=== PATIENT | male | born 1945 | race Caucasian/White ===

== ENCOUNTER → 2018-07-28 | Outpatient (CLI) | payer OTHER ==
[~2018-07-28] VITALS: Ht 177.8 cm; Wt 93.9 kg
[~2018-07-28] MED LIST: ASPIRIN EC325 MG PO; COZAAR 25 MG TA25 M1 PO; GABAPENTIN 100100 MG PO; GLIPIZIDE 10 MG10 MG PO; IMDUR 30 MG TAB30 M1 PO; LANTUS100 UNIT/M SUBQ; METFORMIN HCL500 MG PO; NOVOLOG100 UNIT/1 SUBQ; PAXIL10 MG PO; PRAVACHOL40 MG PO; PROTONIX40 M1 PO; SYNTHROID25 MC1 PO; TOPROL XL25 MG PO; TRAMADOL 50 MG50 MG PO; TUMS PO; UNICOMPLEX M TA1 TA1 PO; VENLAFAXINE H37.5 M2 PO
[2018-07-28 08:39] VITALS: BP 127/69
[2018-07-28 09:02] LABS: HEMATOCRIT 34.3 % (42.0-52.0); HEMOGLOBIN 11.7 gm/dL (14.0-18.0); MCH 29.4 pg (26.0-34.0); MCHC 34.2 g/dL (28.0-37.0); RBC 3.99 mil/uL (4.50-6.00); WBC 5.8 thou/uL (4.0-11.0)
[2018-07-28 09:11] LABS: CALCIUM 9.5 mg/dL (8.5-10.1); CREATININE 0.8 mg/dL (0.7-1.3); POTASSIUM 3.9 mmol/L (3.5-5.1)
[2018-07-28 09:14] LABS: PROTIME 9.9 Seconds (9.3-11.4)
--- NOTE | 2018-07-28 15:15 | CATHLAB ---
[facility] [place] [address] INVASIVE PROCEDURE REPORT Name: SHAYANJACK ISRA MEMBRENO [id number] Admission: 07/28/18 Attend Phys: Ramy Lacey MD Discharge: Date of : 45 Date of Service: 07/28/18 1425 Report #: [id number] THIS REPORT FOR: //name// APPROVED REPORT Study performed: 07/28/2018 08:41:27 Patient Details Patient Status: Out-Patient Room #: The patient is a 73 year-old male Event Personnel Ramy Lacey Fixer Boarding Room, Chance Anderson RN, Emerald Almaraz RTR, VENECIA Church, Jerson Gonzalez Monitor Procedures Performed Left Heart Cath w/or w/o Coronaries [id number] [facility] Indication Abnormal ECG, Dyspnea, Unstable angina , Chest pain Risk Factors Hypercholesterolemia, Hypertension, Diabetes Procedure Narrative The Right Groin^ was infiltrated with 1% Lidocaine subcutaneous anesthesia. A PINNACLE 5FR Sheath #[id number] sheath was inserted into the RFA^. Coronary angiography was performed using coronary diagnostic catheters. The right coronary system was accessed and visualized with a JR4 catheter. The left coronary system was accessed and visualized with a 4FR JL 5.0 #[id number] catheter. The left ventricle was accessed and visualized with a PIGTAIL catheter. Left ventricular/Aortic Valve gradient assessed via catheter pullback. Left ventriculogram was performed in 30 degree projection. Closure device was deployed with a 5 Fr MYNXGRIP 5F #[id number]. There was no hematoma. Intraoperative Conscious Sedation Sedation start time: 9.37 Case end Time: 10.13 Fentanyl 50 mcg Versed 1 mg [facility] [place] [address] INVASIVE PROCEDURE REPORT Name: JACK DOWNEY JR Room #: REG [facility]#: [id number] Admission: 07/28/18 Attend Phys: Ramy Lacey MD Discharge: Date of : 45 Date of Service: 07/28/18 1425 Report #: [id number] Fluoro Time: 4.37 minutes Dose: DAP 7891 cGycm2 984 mGy Coronary Angiography The patient's coronary anatomy is right dominant. Diagnostic Cath Left Main This is a patent vessel, with no flow-limiting lesions. LAD There is a severe, ostial stenosis, 90%. Within the first half of the mid segment, there is a borderline stenosis, 60%. Diagonal 1 This is a moderate size caliber vessel, with mild disease proximally. Circumflex There is a severe occlusion in the mid segment, 80%. OM1 This is a patent vessel, with no flow-limiting lesions. OM2 There is an ostial stenosis, 60%. Right Coronary There is a total occlusion in the midsegment. The distal branches are filled via collateral circulation from the left coronary artery. Left Ventriculography The left ventricle is normal in size with decreased contractility. The left ventricular ejection fraction is estimated to be 40-45%. There is hypokinesis of the inferior segment. Hemodynamics The aortic pressure is 142/70 mmHg with a mean of 100 mmHg. The left ventricular pressure is 151/11 mmHg with a mean of mmHg. The left ventricular end diastolic pressure is 28 mmHg. There was no gradient across the aortic valve upon pullback. Pullback from the left ventricle to the aorta revealed no gradient across the aortic valve. Conclusion 1. Severe multivessel disease. 2. Mild to moderate segmental LV dysfunction. 3. Recommend CV surgical consultation. <ELECTRONICALLY SIGNED> By: aRmy Lacey MD 07/28/18 1425 1425 1425 Ramy Lacey MD /INF
--- NOTE | 2018-07-28 22:15 | EKG ---
[address] [address] ELECTROCARDIOGRAM REPORT Name: JACK DOWNEY [facility] [id number] Admission: 07/28/18 Attend Phys: Ramy Lacey MD Discharge: Date of : 45 Report #: [id number] THIS REPORT FOR: //name// [facility] Test Date: 2018-07-28 Test Time: 09:01:50 Pat Name: JACK DOWNEY Department: Room: Gender: Irrigation Manager: Lynette PATEL : 1945 Requested By: Ramy Lacey Order Number: [id number] MD: Benito Salcido Measurements Intervals [place] Rate: 83 P: 50 [place]: 152 QRS: -29 QRSD: 107 T: 32 QT: 386 QTc: 454 Interpretive Statements Sinus rhythm Atrial premature complex Inferior infarct, old No previous ECG available for comparison Electronically Signed On 07-28-2018 22:15:37 SHROUDMAN by Benito Salcido [email or web address] <ELECTRONICALLY SIGNED> By: Benito Salcido MD 07/28/18 2215 09 0 Benito Salcido MD /LUDIN
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
== END | disposition home or self-care (01) ==
LOC: CATH 08:05
PROVIDERS: Internal Medicine Cardiovascular Disease
DX: I25.110 Atherosclerotic heart disease of native coronary artery with unstable angina pectoris (principal); R07.9 Chest pain, unspecified; F41.9 Anxiety disorder, unspecified; E11.9 Type 2 diabetes mellitus without complications; E78.5 Hyperlipidemia, unspecified; G47.30 Sleep apnea, unspecified; M19.90 Unspecified osteoarthritis, unspecified site; K21.9 Gastro-esophageal reflux disease without esophagitis; I10 Essential (primary) hypertension; Z82.49 Family history of ischemic heart disease and other diseases of the circulatory system

== ENCOUNTER → 2018-08-04 | Outpatient (CLI) | payer OTHER ==
[~2018-08-04] MED LIST changes: +ALEVE220 MG PO; +ALLER-TEC D 5-1 EACH PO; +ATORVASTATIN CA40 MG PO; +CALCIUM 600 +1 EA12 PO; +FIBERCON625 M1 PO; +FLOMAX0.4 MG PO; +GLUCOPHAGE1000 MG PO; +KRILL OIL500 MG PO; +ONE-A-DAY ESSE1 EACH PO; +PAXIL 20 MG TAB20 MG PO; +STOOL SOFTENER1 EAC2 PO; +TOPROL XL50 MG PO; +TRULICITY1.5 MG/0.5 SUBQ; +TUSSIN DM LIQU118 ML PO; +VOLTAREN GEL 1100 G1 TOP
--- NOTE | 2018-08-04 15:03 | 2DMMODE ---
[facility] [place] [address] 2 D/M-MODE ECHOCARDIOGRAM Name: JACK DOWNEY JR Room #: REG [facility]#: [id number] Admission: 08/04/18 Attend Phys: Ramy Lacey MD Discharge: Date of : 45 Date of Service: 08/04/18 1502 Report #: [id number] THIS REPORT FOR: //name// APPROVED REPORT Study performed: 08/04/2018 14:05:11 EXAM: Comprehensive 2D, Doppler, and color-flow Echocardiogram Patient Location: Out-Patient Status: routine BSA: 2.13 HR: 74 bpm BP: 120/66 mmHg Rhythm: NSR Other Information Study Quality: Good Indications CAD, Pre-Op CABG. Hx: HTN, HLP, DM 2D Dimensions RVDd: 40.61 mm IVSd: 11.87 (7-11mm) LVOT Diam: 22.67 (18-24mm) LVDd: 53.30 mm PWd: 13.03 (7-11mm) Ascending Ao: 40.83 (22-36mm) LVDs: 36.66 (25-40mm) Aortic Root: 37.05 mm Volumes Left Atrial Volume (Systole) Single Plane 4CH: 72.14 mL Single Plane 2CH: 88.28 mL LA ESV Index: 41.00 mL/m2 Aortic Valve AoV Peak Derrick.: 2.26 m/s AO Peak Gr.: 20.39 mmHg LVOT Max P.95 mmHg AO Mean Gr.: 9.43 mmHg AO V2 Mean: 1.45 m/s LVOT Max V: 0.99 m/s AO V2 VTI: 37.01 cm RUPA Vmax: 1.78 cm2 Mitral Valve E/A Ratio: 0.6 MV Decel. Time: 192.44 ms [facility] [place] [address] 2 D/M-MODE ECHOCARDIOGRAM Name: JACK DOWNEY Room #: REG [facility].#: [id number] Admission: 08/04/18 Attend Phys: Ramy Lacey MD Discharge: Date of : 45 Date of Service: 08/04/18 1502 Report #: [id number] MV E Max Derrick.: 0.67 m/s MV A Derrick.: 1.21 m/s MV PHT: 55.81 ms IVRT: 93.43 ms Pulmonary Valve PV Peak Derrick.: 1.09 m/s PV Peak Gr.: 4.77 mmHg Pulmonary Vein P Vein S: 0.59 m/s P Vein A: 0.28 m/s P Vein D: 0.39 m/s P Vein A Dur.: 114.2 msec P Vein S/D Ratio: 1.51 Tricuspid Valve TR Peak Derrick.: 2.56 m/s RAP Estimate: 5.00 mmHg TR Peak Gr.: 26.22 mmHg PA Pressure: 31.00 mmHg Left Ventricle The left ventricle is normal size. Hypokinesis of the inferior wall. Mild concentric left ventricular hypertrophy. Left ventricular systolic function is mildly decreased. LVEF is 45%. Mild diastolic dysfunction is present (impaired relaxation pattern). Right Ventricle The right ventricle is normal size. The right ventricular systolic function is normal. Atria Left atrium is mild to moderately dilated. Right atrium is mildly dilated. Aortic Valve The Aortic valve is sclerotic. Mild aortic regurgitation. Mitral Valve Mitral valve leaflets are mildly thickened. Mild mitral annular calcification. Mild mitral regurgitation. No evidence of mitral valve stenosis. Tricuspid Valve The tricuspid valve is normal in structure. Trace tricuspid regurgitation. Estimated PAP is 30-35mmHg. Pulmonic Valve [address] [address] 2 D/M-MODE ECHOCARDIOGRAM Name: DOWNEYJACK ISRA Room #: REG [facility] [id number] Admission: 08/04/18 Attend Phys: Ramy Lacey MD Discharge: Date of : 45 Date of Service: 08/04/18 1502 Report #: [id number] The pulmonary valve is normal in structure. There is no pulmonic valvular regurgitation. Great Vessels The aortic root is normal in size. Ascending aorta is dilated at 4.1cm. IVC is normal in size and collapses >50% with inspiration. Pericardium There is no pericardial effusion. <Conclusion> The left ventricle is normal size. Mild concentric left ventricular hypertrophy. LVEF is 45%. Hypokinesis of the inferior wall. Mild diastolic dysfunction is present (impaired relaxation pattern). The right ventricle is normal size. Left atrium is mild to moderately dilated. Right atrium is mildly dilated. The Aortic valve is sclerotic. Mild aortic regurgitation. Mild mitral regurgitation. Trace tricuspid regurgitation. Estimated PAP is 30-35mmHg. <ELECTRONICALLY SIGNED> By: Ramy Lacey MD 08/04/18 1502 150 150 Ramy Lacey MD /INF
== END ==
LOC: CV 08:46
DX: Z01.818 Encounter for other preprocedural examination (principal); I08.0 Rheumatic disorders of both mitral and aortic valves; I10 Essential (primary) hypertension; E78.5 Hyperlipidemia, unspecified; E11.9 Type 2 diabetes mellitus without complications

== ENCOUNTER 2018-08-11 05:23 | Inpatient (IN) | payer OTHER ==
[2018-08-04 10:56] LABS: URINE BILIRUBIN NEGATIVE (Negative); URINE BLOOD NEGATIVE (Negative); URINE CLARITY CLEAR; URINE COLOR YELLOW; URINE GLUCOSE-RANDOM* 1+ (Negative); URINE KETONES NEGATIVE (Negative); URINE LEUKOCYTES-REFLEX NEGATIVE (Negative); URINE NITRITE-REFLEX NEGATIVE (Negative); URINE PROTEIN (DIPSTICK) NEGATIVE (Negative); URINE SPECIFIC GRAVITY <= 1.005 (1.005-1.035); URINE UROBILINOGEN 0.2 E.U./dl (0.2-1.0)
[2018-08-04 11:00] LABS: ABSOLUTE NEUTROPHILS 3.8 thou/uL (1.4-8.2); BASOPHILS 0.5 % (0.0-2.0); EOSINOPHILS 6.9 % (0.0-3.0); HEMATOCRIT 38.2 % (42.0-52.0); HEMOGLOBIN 12.7 gm/dL (14.0-18.0); LYMPHOCYTES 18.7 % (24.0-44.0); MCHC 33.1 g/dL (28.0-37.0); MCV 87.5 fL (80.0-100.0); MONOCYTES 11.7 % (1.0-8.0); PLATELET COUNT 312 thou/uL (150-400); POLYS 62.2 % (36.0-66.0); RBC 4.36 mil/uL (4.50-6.00); RDW 14.4 % (10.5-14.5); WBC 6.1 thou/uL (4.0-11.0)
[2018-08-04 11:13] LABS: ALBUMIN 3.6 g/dL (3.4-5.0); CALCIUM 9.9 mg/dL (8.5-10.1); CREATININE 0.9 mg/dL (0.7-1.3); POTASSIUM 4.4 mmol/L (3.5-5.1); TOTAL BILIRUBIN 0.2 mg/dL (<0.1-1.0); TOTAL PROTEIN 7.9 g/dL (6.4-8.2)
[2018-08-04 11:15] LABS: APTT 25.4 Seconds (24.5-32.8); PROTIME 9.5 Seconds (9.3-11.4)
[2018-08-04 20:07] LABS: GLYCOHEMOGLOBIN (HGB A1C) 11.5 % (4.8-5.6)
[2018-08-11] VITALS (9 sets, daily range): BP systolic 117–157; BP diastolic 61–84
[~2018-08-11] VITALS: Ht 177.8 cm; Wt 101.2 kg
[2018-08-11 14:15] LABS: HEMATOCRIT 23.6 % (42.0-52.0); MCH 29.5 pg (26.0-34.0); MCV 84.4 fL (80.0-100.0); RBC 2.79 mil/uL (4.50-6.00); RDW 13.8 % (10.5-14.5); WBC 6.7 thou/uL (4.0-11.0)
[2018-08-11 14:17] LABS: HEMOGLOBIN 8.2 gm/dL (14.0-18.0)
[2018-08-11 14:24] LABS: APTT 28.2 Seconds (24.5-32.8); PROTIME 15.8 Seconds (9.3-11.4)
[2018-08-11 14:30] LABS: INR 1.5
[2018-08-11 15:04] LABS: POC BE 6 mmol/L (-2.0 to +3.0); POC CA IONIZED 4.7 mg/dL (4.5-5.3); POC GLUCOSE 153 mg/dL (70-99); POC HCO3 29.5 mmol/L (22.0-26.0); POC HEMOGLOBIN 10.9 g/dL (14.0-18.0); POC SODIUM 139 mmol/L (136-145); POC pCO2 38.5 mmHg (35.0-45.0); POC pH 7.493 (7.360-7.450)
[2018-08-11 15:04] LABS: POC BE 2 mmol/L (-2.0 to +3.0); POC CA IONIZED 4.9 mg/dL (4.5-5.3); POC GLUCOSE 154 mg/dL (70-99); POC HCO3 25.9 mmol/L (22.0-26.0); POC HEMOGLOBIN 8.5 g/dL (14.0-18.0); POC POTASSIUM 3.6 mmol/L (3.5-5.1); POC SODIUM 142 mmol/L (136-145); POC pCO2 39.2 mmHg (35.0-45.0); POC pH 7.428 (7.360-7.450)
[2018-08-11 15:04] LABS: POC BE 7 mmol/L (-2.0 to +3.0); POC CA IONIZED 4.2 mg/dL (4.5-5.3); POC GLUCOSE 129 mg/dL (70-99); POC HEMOGLOBIN 9.2 g/dL (14.0-18.0); POC POTASSIUM 3.7 mmol/L (3.5-5.1); POC SODIUM 140 mmol/L (136-145); POC pCO2 39.9 mmHg (35.0-45.0); POC pH 7.484 (7.360-7.450)
[2018-08-11 15:04] LABS: POC BE 3 mmol/L (-2.0 to +3.0); POC GLUCOSE 153 mg/dL (70-99); POC HCO3 27.4 mmol/L (22.0-26.0); POC HEMOGLOBIN 8.8 g/dL (14.0-18.0); POC SODIUM 141 mmol/L (136-145); POC pCO2 43.9 mmHg (35.0-45.0); POC pH 7.404 (7.360-7.450)
[2018-08-11 15:04] LABS: POC BE 3 mmol/L (-2.0 to +3.0); POC CA IONIZED 4.4 mg/dL (4.5-5.3); POC GLUCOSE 145 mg/dL (70-99); POC HCO3 27.6 mmol/L (22.0-26.0); POC HEMOGLOBIN 8.8 g/dL (14.0-18.0); POC POTASSIUM 3.6 mmol/L (3.5-5.1); POC SODIUM 142 mmol/L (136-145); POC pCO2 40.9 mmHg (35.0-45.0); POC pH 7.438 (7.360-7.450)
[2018-08-11 15:04] LABS: POC BE 5 mmol/L (-2.0 to +3.0); POC CA IONIZED 4.6 mg/dL (4.5-5.3); POC GLUCOSE 129 mg/dL (70-99); POC HEMOGLOBIN 10.2 g/dL (14.0-18.0); POC POTASSIUM 3.5 mmol/L (3.5-5.1); POC SODIUM 140 mmol/L (136-145); POC pCO2 34.6 mmHg (35.0-45.0); POC pH 7.516 (7.360-7.450)
[2018-08-11 15:04] LABS: POC BE 1 mmol/L (-2.0 to +3.0); POC CA IONIZED 4.8 mg/dL (4.5-5.3); POC GLUCOSE 141 mg/dL (70-99); POC HCO3 25.6 mmol/L (22.0-26.0); POC HEMOGLOBIN 9.9 g/dL (14.0-18.0); POC POTASSIUM 3.9 mmol/L (3.5-5.1); POC SODIUM 143 mmol/L (136-145); POC pCO2 41.2 mmHg (35.0-45.0); POC pH 7.401 (7.360-7.450)
[2018-08-11 15:04] LABS: POC BE 4 mmol/L (-2.0 to +3.0); POC CA IONIZED 4.5 mg/dL (4.5-5.3); POC GLUCOSE 136 mg/dL (70-99); POC HCO3 27.6 mmol/L (22.0-26.0); POC HEMOGLOBIN 9.5 g/dL (14.0-18.0); POC SODIUM 142 mmol/L (136-145); POC pCO2 39.2 mmHg (35.0-45.0); POC pH 7.455 (7.360-7.450)
[2018-08-11 15:04] LABS: POC BE 4 mmol/L (-2.0 to +3.0); POC CA IONIZED 4.4 mg/dL (4.5-5.3); POC GLUCOSE 138 mg/dL (70-99); POC HCO3 28.1 mmol/L (22.0-26.0); POC HEMOGLOBIN 9.5 g/dL (14.0-18.0); POC POTASSIUM 2.9 mmol/L (3.5-5.1); POC SODIUM 143 mmol/L (136-145); POC pCO2 39.8 mmHg (35.0-45.0); POC pH 7.457 (7.360-7.450)
[2018-08-11 15:32] LABS: HEMATOCRIT 29.3 % (42.0-52.0); HEMOGLOBIN 10.1 gm/dL (14.0-18.0); MCH 29.5 pg (26.0-34.0); MCHC 34.3 g/dL (28.0-37.0); RBC 3.41 mil/uL (4.50-6.00); RDW 14.2 % (10.5-14.5); WBC 10.2 thou/uL (4.0-11.0)
[2018-08-11 15:39] LABS: CALCIUM 8.6 mg/dL (8.5-10.1); CREATININE 0.8 mg/dL (0.7-1.3); MAGNESIUM 2.3 mg/dL (1.8-2.4); POTASSIUM 4.1 mmol/L (3.5-5.1)
[2018-08-11 15:41] LABS: BE(vivo) -3.7 mmol/L (-2 to +3); HCO3 22.8 mmol/L (22.0-26.0); PCO2 47.5 mmHg (35.0-45.0); PO2 175.9 mmHg (80.0-100.0)
[2018-08-11 15:42] LABS: pH 7.299 (7.360-7.450)
[2018-08-11 15:43] LABS: APTT 23.6 Seconds (24.5-32.8); INR 1.1; PROTIME 11.2 Seconds (9.3-11.4)
[2018-08-11 16:23] LABS: HCO3 21.5 mmol/L (22.0-26.0); PCO2 40.9 mmHg (35.0-45.0); PO2 112.7 mmHg (80.0-100.0); pH 7.339 (7.360-7.450); sO2 97.9 % (92.0-98.0)
[2018-08-11 18:31] LABS: BE(vivo) -4.3 mmol/L (-2 to +3); HCO3 21.9 mmol/L (22.0-26.0); PCO2 44.9 mmHg (35.0-45.0); PO2 107.1 mmHg (80.0-100.0); sO2 97.4 % (92.0-98.0)
[2018-08-11 18:33] LABS: pH 7.307 (7.360-7.450)
--- NOTE | 2018-08-11 19:29 | NUR ---
PT TRANSFERRED TO ICU POST CABG X4 1500. DR. GOOD, BUCK SWAMPER, RT, AND DR. YANEZ PRESENT UPON ARRIVAL. PLACED ON VENT. SEDATED ON PROPOFOL. INSULIN GTT AND DOBUTAMINE GTT INSUING. PLACED ON MONTIOR. R-IJ. R-RADIAL ABI. ARM BOARD IN PLACE. SWAN AT 53. ATRIUM TO -20 SUCTION. 2 MEDS/[address] SEE I/O FOR HOURLY OUTPUT. INITAL LABS DRAWN. BS Q1HR, SEE INSULIN FLOW SHEET FOR TITRATION. TIANA KELLYGGER INITIATED - OFF AT 1630. OG TO LIS. PACER WIRES IN PLACE - OFF. STARTED ON 1/2 NS WITH MAG. AMIO GTT PER ORDERS. CRITICAL RESULTS COMMUNICATED TO DR. YANEZ. CPAP TRIAL DONE. ORDERS TO EXTUBATE. EXTUBATED AT 1850. ON FACESHIELD 40%. PT TOLERATED WELL. PRN FENTANYL GIVEN. UPDATED ON PATIENT STATUS.
[2018-08-11 20:11] LABS: BE(vivo) -3.8 mmol/L (-2 to +3); HCO3 21.8 mmol/L (22.0-26.0); PCO2 41.6 mmHg (35.0-45.0); PO2 86.2 mmHg (80.0-100.0); pH 7.337 (7.360-7.450)
[2018-08-12] VITALS (28 sets, daily range): BP systolic 96–137; BP diastolic 50–96
[2018-08-12 04:28] LABS: HEMATOCRIT 32.2 % (42.0-52.0); HEMOGLOBIN 10.7 gm/dL (14.0-18.0); MCH 28.6 pg (26.0-34.0); MCHC 33.3 g/dL (28.0-37.0); MCV 86.1 fL (80.0-100.0); RBC 3.74 mil/uL (4.50-6.00); RDW 14.4 % (10.5-14.5); WBC 12.1 thou/uL (4.0-11.0)
[2018-08-12 04:29] LABS: CALCIUM 8.6 mg/dL (8.5-10.1); CREATININE 0.7 mg/dL (0.7-1.3); MAGNESIUM 2.4 mg/dL (1.8-2.4); POTASSIUM 4.1 mmol/L (3.5-5.1)
[2018-08-12 04:31] LABS: INR 1.1; PROTIME 11.2 Seconds (9.3-11.4)
--- NOTE | 2018-08-12 07:39 | NUR ---
ASSUMED CARE OF PT AT 1900. PT EXTUBATED BY PRIOR SHIFT RN. PT TOLERATED WELL. RN ABLE TO WEAN O2 NEEDS DOWN. PT CURRENTLY ON A NC AT 2L. PT OFF DOBUTAMINE AND CARDENE. HEMODYNAMICALLY STABLE. PT ALERT AND ORIENTED X4. PT C/O PAIN ON HIS UPPER ABDOMEN/ CHEST R/T HIS CHEST TUBES. EDUCATION ABOUT PAIN MANAGMENT AND WHAT TO ANTICIPATE WAS PROVIDED TO PATIENT. PT ABLE TO TOLERATE GETTING UP OUT OF CHAIR THIS AM. GOOD UO. PT MAKING GREAT PROGRESS TOWARDS GOALS.
--- NOTE | 2018-08-12 08:07 | EKG ---
[place] [address] [facility] [place] [address] ELECTROCARDIOGRAM REPORT Name: JACK DOWNEY Room #: 241-P ADM IN M.R.#: [id number] Admission: 08/11/18 Attend Phys: Breezy Vu MD Discharge: Date of : 45 Report #: [id number] THIS REPORT FOR: //name// [facility] Test Date: 2018-08-11 Test Time: 17:50:38 Pat Name: JACK DOWNEY Department: Room: 241 Gender: M Bobbin Cleaner: Mark PINTO : 1945 Requested By: Breezy Vu Order Number: [id number] MD: Cain Silverman Measurements Intervals [place] Rate: 94 P: 32 [place]: 161 QRS: -38 QRSD: 95 T: 2 QT: 371 QTc: 464 Interpretive Statements Sinus rhythm RSR' in V1 or V2, right VCD Inferior infarct, old Compared to ECG 07/28/2018 09:01:50 No significant change was found Electronically Signed On 08-12-2018 8:07:26 ROD AND TUBE STRAIGHTENER by Cain Silverman [email or web address] <ELECTRONICALLY SIGNED> By: Cain Silverman MD, [facility] 08/12/18806 1750 175 Cain Silverman MD, [facility] /EPI
--- NOTE | 2018-08-12 08:22 | EKG ---
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 : 1945 Requested By: Breezy Vu Order Number: [id number] MD: Cain Silverman Measurements Intervals [place] Rate: 89 P: 49 TN: 153 QRS: -34 QRSD: 102 T: 13 QT: 373 QTc: 454 Interpretive Statements Sinus rhythm Atrial premature complex Abnormal R-wave progression, late transition Inferior infarct, old Nonspecific ST and T wave abnormality Compared to ECG 07/28/2018 09:01:50 Atrial premature complexes are now present Electronically Signed On 08-12-2018 8:22:04 RN [facility] by Cain Silverman [email or web address] <ELECTRONICALLY SIGNED> By: Cain Silverman MD, [facility] 08/12/18821 8 8 Cain Silverman MD, [facility] /EPI
--- NOTE | 2018-08-12 08:49 | NUR ---
RD consult received for diet education s/p CABG 08/11. Diet newly advanced, will follow once transferred out of ICU for nutrition education needs.
--- NOTE | 2018-08-12 10:27 | NUR ---
CM ASSESSMENT: CASE OPENED FOR DC PLANNING. CLINICAL INFO REVIEWED AND PT KNOWN TO THIS CM FROM PRE OP REQUEST FROM CTS TO SPEAK WITH PT ABOUT PLANNING FOR POST OP PHASE, PT HAS SPOUSE WITH [facility] AND PT PROVIDES ASSIST WITH SPOUSE. POD #1 CABG X4. PT UP IN CHAIR THIS AM AND LOOKS GOOD. REINTRODUCED CM ROLE. PT AND SPOUSE LIVE IN HOUSE, 2 STEPS TO ENTER. PT INDEPNEDENT WITH ADLS, DRIVES, DOES IADLS. NO DME. PT INDICATES FAMILY MEMBERS ARE STAYING IN HOME TO PROVIDE SUPPORT TO SPOUSE, AND PT'S 2 SMALL DOGS ARE BEING CARED FOR BY PT'S NIECE IN HER HOME. PT INDICATES FAMILY WILL CONITNUE TO ASSIST IN HOME AFTER HIS DISCHARGE. THERAPY EVALS TODAY AND WILL FOLLOW TO ASSIST WITH COORDINATION OF NEEDS FOR DISCHARGE. POSSIBLE HOME HEALTH.
--- NOTE | 2018-08-12 13:16 | NUR ---
ASSESSMENTS DOCUMENTED. PT SITTING UP IN CHAIR AT SHIFT CHANGE. A/OX4, A LITTLE FORGETFUL AT TIMES. ON 2L NC - ABLE TO TITRATE DOWN, CURRENTLY ON ROOM AIR WITH SATS IN MID TO HIGH 90'S. PRN PAIN MEDICATION GIVEN PER MAR FOR STERNAL PAIN. MEDS + PLUERAL CT TO -20 SUCTION. LEFT LEG THANH DRAIN. LEONG IN PLACE. STARTED ON ACHS SS INSULIN - SPOKE WITH DR. DIAS ABOUT NOON BS, HE WILL PLACE NEW ORDERS FOR MANAGEMENT. FAITH D/C'D. R-RADIAL ART LINE. PROGRESSING TOWARDS GOALS. FAMILY UPDATED.
--- NOTE | 2018-08-12 20:30 | NUR ---
ASSUMED CARE OF PT AT 1300 THIS SHIFT. PT HAS BEEN COOPERATIVE, HAS HAD POST OP MEDIASTINAL PAIN POST SURGERY, PAIN MEDS GIVEN. PT HAD WORKED WITH PHYSICAL THERAPY AND WAS UP IN THE CHAIR FOR A FEW HOURS BEFORE GETTING BACK IN BED. PT'S ART LINE AND MEDIASTINAL TUBES WERE PULLED THIS SHIFT ON DR YANEZ'S ORDER. ASSESSMENTS ARE DOCUMENTED. PT HAS HAD VISITORS THIS SHIFT, EDUCATION WAS PROVIDED. PLAN OF CARE IS TO CONTINUE TO MONITOR PT CLOSELY AND HAVE GOOD PAIN MANAGEMENT FOR POST OP PAIN.
[2018-08-13] VITALS (40 sets, daily range): BP systolic 76–133; BP diastolic 43–78
[2018-08-13 06:08] LABS: HEMATOCRIT 28.1 % (42.0-52.0); HEMOGLOBIN 9.3 gm/dL (14.0-18.0); MCH 28.9 pg (26.0-34.0); MCHC 33.2 g/dL (28.0-37.0); MCV 87.1 fL (80.0-100.0); RBC 3.23 mil/uL (4.50-6.00); RDW 14.4 % (10.5-14.5)
--- NOTE | 2018-08-13 06:18 | NUR ---
Pt awake off and on through the night. PRN fentanyl and hydrocodones given and alternated for adequate pain relief achieved. Pt went into rapid AFib earlier this am and completely asymptomatic with HR up to 160's. Dr. Vu called and orders received. Cardizem and Amiodarone gtts going per orders with some effect. SpO2 adequate on 3L of O2 and urine output adequate for shift. Chest tube and THANH drainage minimal. Am lab results pending, continue with POC.
[2018-08-13 06:20] LABS: CALCIUM 8.8 mg/dL (8.5-10.1); CREATININE 0.8 mg/dL (0.7-1.3)
--- NOTE | 2018-08-13 10:47 | EKG ---
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: CHRISTINE : 1945 Requested By: Rolan Freire Order Number: [id number] MD: Ramy Lacye Measurements Intervals [place] Rate: 130 P: MA: QRS: -34 QRSD: 97 T: 24 QT: 338 QTc: 497 Interpretive Statements Atrial fibrillation Abnormal R-wave progression, early transition Left ventricular hypertrophy Inferior infarct, old Compared to ECG 08/12/2018 07:19:15 Left ventricular hypertrophy now present Sinus rhythm no longer present Atrial premature complex(es) no longer present ST (T wave) deviation no longer present Myocardial infarct finding still present Electronically Signed On 08-13-2018 10:47:44 CADD DRAFTER by Ramy Lacey [email or web address] <ELECTRONICALLY SIGNED> By: Ramy Lacey MD 08/13/18 1047 5 5 Ramy Lacey MD /EPI
--- NOTE | 2018-08-13 14:34 | O ---
[facility] [address] OPERATIVE REPORT Name: JACK DOWNEY JR Room #: 241-P [facility] IN M.R.#: [id number] Admission: 08/11/18 Attend Phys: Breezy Vu MD Discharge: Date of : 45 Report #: [id number] THIS REPORT FOR: //name// CC: Christen Vu DATE OF SERVICE: 08/11/2018 PREOPERATIVE DIAGNOSIS: Coronary artery disease. POSTOPERATIVE DIAGNOSIS: Coronary artery disease. OPERATION: Coronary artery bypass x 4 including left internal mammary artery to left anterior descending artery, saphenous vein to ramus and marginal and saphenous vein to posterior descending artery and endoscopic and open harvest, left greater saphenous vein. SURGEON: Breezy Vu MD DIRECTOR OF ENROLLMENT: GABE De Anda ANESTHESIA: General. INDICATIONS: The patient is a 73-year-old seen for Dr. Lacey. The patient has severe 3-vessel coronary artery disease. Left ventricular function is satisfactory. FINDINGS AND TECHNIQUE: After general anesthesia was established, saphenous vein was harvested and prepared for use as a conduit. Exposure was obtained through median sternotomy. Left internal mammary artery was harvested. Pericardial well was made. Cannulation sutures were placed. Heparin was given. Aorta was cannulated. Right atrium was cannulated. Cardioplegia needle was positioned in the aortic root. Retrograde cardioplegic catheter was placed in coronary sinus. Cardiopulmonary bypass was established. The aorta was cross clamped. Antegrade and retrograde cardioplegia were given. Ice was poured in the pericardial well. The heart was stopped. During electromechanical arrest, the distal anastomoses were performed and end-to-side anastomosis was made between vein and the posterior descending artery. Cold cardioplegia was given. A separate segment of vein was sewn in end-to-side fashion to the marginal artery. Cold cardioplegia was given. The same segment of vein was sewn in end-to-side fashion to the ramus intermedius. Cold cardioplegia was given. Left internal mammary artery was sewn in end-to-side fashion to the left anterior descending artery. Patency of this vessel was checked with the temperature technique. Cold cardioplegia was given. Two proximal anastomoses were performed. When these were complete, warm [facility] [address] [place] [address] OPERATIVE REPORT Name: JACK DOWNEY JR Room #: 241-P [facility] IN M.R.#: [id number] Admission: 08/11/18 Attend Phys: Breezy Vu MD Discharge: Date of : 45 Report #: [id number] retrograde cardioplegia was given followed by warm continuous blood to the coronary sinus. When this infusion was complete, the crossclamp was removed, de-airing maneuvers were performed. The anastomoses were inspected and found to be satisfactory. As the patient warmed, nice cardiac activity resumed, chest tubes and pacing wires were placed, a marker was placed around the proximal anastomoses. When the patient was warmed, he was weaned from cardiopulmonary bypass. Venous cannula was removed. Protamine was given, the aortic cannula was removed. Flows were measured in the bypass grafts. When hemostasis was satisfactory, chest was irrigated with antibiotic solution and closed in the usual fashion. The patient was taken to the Intensive Care Unit in good condition having tolerated the procedure well. All counts were reported as correct. <ELECTRONICALLY SIGNED> By: Breezy Vu MD 08/13/18 1434 193 56 Breezy Vu MD /nt
--- NOTE | 2018-08-13 19:15 | NUR ---
Pt resting back in bed after spending most of the afternoon in the bedside chair. Pt drowsy but easily arousable and responds appropriately. Pt clumsy with hands for fine motor tasks such as feeding himself and using cell phone. Atrial fibrillation much of the day despite Amiodarone infusion. Neosynephrine gtt started this afernoon to support blood pressure. Pt converted to sinus rhythm near end of the shift. Pleural tube remains in place and is patent to Atrium drain. Salguero kept in place for monitoring output. Tolerating meals. Adequate pain control. Multiple family members her to visit today. Report given to RN assuming care. Pt progressing toward goals.
[2018-08-14] VITALS (33 sets, daily range): BP systolic 90–134; BP diastolic 52–79
--- NOTE | 2018-08-14 04:52 | NUR ---
PT RESTING IN BED. SR ON MONITOR WITH PACs. PT ON 3L ON CPAP. PT AFEBRILE. PT REQUIRING SEVERAL DOSES OF PAIN MEDICATION THROUGHOUT SHIFT. PT NEEDS ENCOURAGING TO USE IS. PT HAS LEFT LOWER LEG THANH DRAIN IN TACT. PT ABLE TO TITRATE YAKOV GTT OFF BUT AMIO GTT REMAINS.
--- NOTE | 2018-08-14 06:20 | NUR ---
0532 PT INTO AFIB RVR 110-130S. WITH A FEW INTERMITENT CONVERTS TO SR FOR REALLY ONLY SECONS EACH. PT ASYMPTOMATIC. BP 112/76 CURRENT WITH HR 125. O2 SATS 94% RR 17.
--- NOTE | 2018-08-14 19:00 | NUR ---
Pt alert and oriented today. Pt up in bedside chair for most of the shift. Pt interacted with family who came to visit. Pt's cardiac rhythm shows atrial fibrillation with occasional periods of Sinus rhythm. Amiodarone gtt was reduced to 0.5 mg/min per pump. O2 at 3 liters. Productive cough. Pt uses yankauer suction to cear his secretions. Tolerating meals. Pt drinking large quatity of water. No fluid restricition. Pleural tube patent to -20 cm of suction per Atrium. Bath given. Salguero was removed. Pt has voided twice since catheter removed...small amounts. Adquate pain control. Report given to RN assuming care.
[2018-08-15] VITALS (39 sets, daily range): BP systolic 92–131; BP diastolic 40–103
--- NOTE | 2018-08-15 05:02 | NUR ---
PT HAD RESTFUL NIGHT. REMAINS ON 3L NC SATS 97%. SR & AFIB RVR ON MONITOR INTERMITTENT THROUGHOUT SHIFT. PT CONTINUES ON AMIO GTT AND TOLERATING. PT AFEBRILE AND VSS. PT REQUIRED SEVERAL DOSES OF PAIN MEDICATION. PT TOLERATING IS BUT DOES NEED ENCOURAGEMENT AND REMINDERS. AM LABS TO BE DRAWN AND REVIEWED.
[2018-08-15 05:56] LABS: ABSOLUTE NEUTROPHILS 6.3 thou/uL (1.4-8.2); BASOPHILS 0.5 % (0.0-2.0); EOSINOPHILS 2.6 % (0.0-3.0); HEMATOCRIT 24.9 % (42.0-52.0); HEMOGLOBIN 8.4 gm/dL (14.0-18.0); LYMPHOCYTES 11.6 % (24.0-44.0); MCH 29.1 pg (26.0-34.0); MCHC 33.6 g/dL (28.0-37.0); MCV 86.7 fL (80.0-100.0); PLATELET COUNT 221 thou/uL (150-400); POLYS 76.3 % (36.0-66.0); RBC 2.87 mil/uL (4.50-6.00); RDW 14.1 % (10.5-14.5); WBC 8.2 thou/uL (4.0-11.0)
[2018-08-15 06:01] LABS: CALCIUM 8.3 mg/dL (8.5-10.1); CREATININE 0.9 mg/dL (0.7-1.3); POTASSIUM 3.9 mmol/L (3.5-5.1)
--- NOTE | 2018-08-15 08:18 | EKG ---
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 : 1945 Requested By: Breezy Vu Order Number: [id number] MD: Cain Silverman Measurements Intervals [place] Rate: 153 P: MI: QRS: -35 QRSD: 95 T: 55 QT: 301 QTc: 481 Interpretive Statements Atrial fibrillation with rapid V-rate Abnormal R-wave progression, late transition Inferior infarct, old Compared to ECG 08/12/2018 07:19:15 Atrial fibrillation has replaced sinus rhythm nonspecific change in the ST and T-wave segments Electronically Signed On 08-15-2018 8:17:47 BLOCK HACKER by Cain Silverman [email or web address] <ELECTRONICALLY SIGNED> By: Cain Silverman MD, FACC 08/15/18 0817 0035 0035 Cain Silverman MD, [facility] /EPI
--- NOTE | 2018-08-15 19:39 | NUR ---
PATIENT ALERT AND ORIENTED X4, FORGETFUL AT TIMES. PAIN CONTROLLED WITH MEDICATION. SINUS RHYTHM ON COMPETITIVE SHOPPER, RHYTHM CONTROLLED WITH PO AND IV AMIODARONE. ON ROOM AIR, SHORTNESS OF BREATH WITH ACTIVITY. PATIENT WALLED UNIT WITH PHYSICAL THERAPY REQUIRING 2L OXYGEN. TOLERATING DIET, BLOOD SUGAR MONITORED. UP WITH X2 ASSISTANCE AND WALKER. CHEST TUBE AND J/P DRAIN INTACT. DRESSING CHANGE COMPLETED TO ALL SURGICAL SITES. HOME CPAP PRESENT AT THE BEDSIDE. PATIENT UPDATED ON THE PLAN OF CARE. NO SIGNS OF ACUTE DISTRESS NOTED AT THIS TIME. WILL CONTINUE TO MONITOR.
[2018-08-16] VITALS (19 sets, daily range): BP systolic 91–122; BP diastolic 49–74
--- NOTE | 2018-08-16 02:54 | NUR ---
GCS 14-15. VERY FORGETFUL/MILD CONFUSION. PT REQUIRES FREQUENT REMINDERS AND RE-EDUCATION. CALM, PLEASANT DEMEANOR. FC, LOCK. GENERALIZED WEAKNESS. C/O PAIN AT MIDLINE SURGICAL INCISION. PRN PAIN MEDICATION ADMINISTED. TURNS WITH ASSIST. SINUS RHYTHM ON MONITOR. SURGICAL DRESSINGS CLEAN, DRY, AND INTACT. LEFT PLEURAL TUBE PATENT. -20. NO AIR LEAK NOTED. O2 SAT > 92% ON 2L PER NC. PT DENIES SOA. TOLERATING HEART HEALTHY DIET. 1500ML 24 HOUR FLUID RESTRICTION IN PLACE. VOIDS PER URINAL. PT REQUIRES ASSISTANCE WITH BOTH EATING AND USING URINAL, BUT DOES NOT LIKE TO ASK FOR HELP. VITAL SIGNS AND ASSSESSMENTS DOCUMENTED. WILL CONTINUE TO MONITOR.
[2018-08-16 04:44] LABS: CALCIUM 8.7 mg/dL (8.5-10.1); MAGNESIUM 2.8 mg/dL (1.8-2.4); POTASSIUM 4.4 mmol/L (3.5-5.1)
[2018-08-16 05:09] LABS: HEMATOCRIT 24.4 % (42.0-52.0); HEMOGLOBIN 8.2 gm/dL (14.0-18.0); MCH 28.9 pg (26.0-34.0); MCHC 33.7 g/dL (28.0-37.0); MCV 85.5 fL (80.0-100.0); RBC 2.85 mil/uL (4.50-6.00); RDW 14.2 % (10.5-14.5); WBC 9.7 thou/uL (4.0-11.0)
--- NOTE | 2018-08-16 19:45 | NUR ---
ASSUMED CARE OF PT AT 0700 THIS SHIFT. PT HAS BEEN COOPERATIVE, HAS HAD PAIN FROM SURGERY AT STERNAL INCISION, HOWEVER MAIN COMPLAINT HAS BEEN WEAKNESS. PT HAD A HARD TIME WORKING WITH PHYSICAL THERAPY THIS SHIFT, NOT ABLE TO FOLLOW DIRECTIONS WELL AND EXTREMELY UNSTABLE ON HIS FEET. 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 PT ALSO HAS WANTED TO TO HAVE A BM, NOT ABLE TO SINCE BEFORE SURGERY. ASSESSMENTS ARE DOCUMENTED. PT HAS HAD VISITORS THIS SHIFT, EDUCATION WAS PROVIDED. PLAN OF CARE IS TO CONTINUE TO MONITOR PT CLOSELY AT THIS TIME AND TRANSFER PT TO CCU WHEN BED BECOMES AVAILABLE.
--- NOTE | 2018-08-16 22:44 | NUR ---
GCS 15. FORGETFUL TO MILD CONFUSION. ANSWERS ORIENTATION QUESTIONS APPROPRIATELY. REQUIRES FREQUENT REMINDERS AND RE-EDUCATION. FC, LOCK. GENERALIZED WEAKNESS, ESPECIALLY BUE. PT REQUIRES ASSISTANCE WITH URINAL AND PO INTAKE. HOWEVER, HE OFTEN RESISTS ACCEPTING HELP. SINUS RHYTHM ON MONITOR. PO AMIODERONE. LEFT PLEURAL TUBE IN PLACE. -20. SEROUS DRAINAGE. O2 SAT > 92% ON 2L PER NC. HOME CPAP HS. 1500ML 24 HOUR FLUID RESTRICTION. PT REPORTS CONSTIPATION. PRUNE JUICE GIVEN TO PT. ASSIST WITH BEDPAN PRN. PT EXPERIENCES URINARY HESITANCY. FLOMAX PER ORDERS. ASSIST WITH TURNS Q2 HR AND PRN. INTRODUCER DC THIS SHIFT. HELD PRESSURE TO SITE AND WILL CONTINUE TO MONITOR FOR BLEEDING. VITAL SIGNS AND ASSESSMENTS DOCUMENTED. WILL CONTINUE TO MONITOR.
[2018-08-17] VITALS (23 sets, daily range): BP systolic 80–129; BP diastolic 51–75
[2018-08-17 07:01] LABS: HEMATOCRIT 24.6 % (42.0-52.0); HEMOGLOBIN 8.4 gm/dL (14.0-18.0); MCH 29.4 pg (26.0-34.0); MCHC 34.2 g/dL (28.0-37.0); MCV 86.1 fL (80.0-100.0); RBC 2.86 mil/uL (4.50-6.00); RDW 14.3 % (10.5-14.5); WBC 12.1 thou/uL (4.0-11.0)
[2018-08-17 07:08] LABS: CALCIUM 8.4 mg/dL (8.5-10.1); CREATININE 0.9 mg/dL (0.7-1.3); POTASSIUM 4.6 mmol/L (3.5-5.1)
--- NOTE | 2018-08-17 16:33 | NUR ---
PT TO THE TRANSFERED TO THE UNIT FROM THE ICU. PT ORINETED TO ROOM AND BEDSPACE - ASSESSMENT CHARTED - PT ALERT AND ORIENTED - PT WAS STATAING TO STAFF AND MYSELF THAT HE IS SEEINGBUGS ON THE SAM - STATED THAT HE HAD THE SAME PROBLEM AFTER HIS KNEE SURGERY WITH PAIN MEDICATION GIVEN. DRESSING TO CHEST C/D/I - TO LEFT LEG C/D/I TO THANH SITE DRESSING SATURATEDAND REQUIRED CHANGING - SEROUS DRAINAGE. CHEST TUBE - 20 CM SUCTION AND PACER WIRES REMAIN INSITU. PT HAS BEEN UP IN THE CHAIR SINCE COMING TO THE UNIT - AMBULATED WITH PHYS THERAPY IN THE HALLS. NO CO'S AT THE PRESENT TIME.
--- NOTE | 2018-08-18 03:20 | NUR ---
ASSESSMENT DOCUMENTED.PT A/OX3.S/P CABG X4,POD#7.LEFT LATERAL CT IN PLACE TO SUCTION -20.STERNAL INCISIONS COVERED WITH DRESSING,CDI.LEFT LEG DRESSING INTACT WELL.LOWER PART LEFT LEG INCISION OOZING,MEPILEX DRESSING HAS BEEN CHANGED TWICE.ON CPAP WHILE SLEEPING OTHERWISE ON O2 AT 2LITERS PNC,SATS ADEQUATE.CONFUSED AFTER WAKING UP BUT EASY TO ORIENT.SINUS RHYTHM ON MONITOR.TYLENOL GIVEN FOR SORENESS TO STERNAL INCISION.NO OTHER CONCERNS VOICED AT THIS TIME.WILL CONT TO MONITOR PER POC.
[2018-08-18 03:32] VITALS: BP 114/68
[2018-08-18 08:00] VITALS: BP 149/95
[2018-08-18 11:36] VITALS: BP 117/68
--- NOTE | 2018-08-18 13:33 | NUR ---
Followup: s/p CABG 08/11. PO intake slowly improving, had mild ileus. Diet being kept conservative and on regular diet. Wts fairly stable. BG controlled. Pt voiced no questions regarding diet. Low nutrition risk
--- NOTE | 2018-08-18 13:48 | 2DMMODE ---
[facility] [place] [address] 2 D/M-MODE ECHOCARDIOGRAM Name: JACK DOWNEY Room #: 215-P [facility] IN ..#: [id number] Admission: 08/11/18 Attend Phys: Aron Ferreira MD Discharge: Date of : 45 Date of Service: 08/18/18 1347 Report #: [id number] THIS REPORT FOR: //name// APPROVED REPORT Study performed: 08/18/2018 13:02:37 EXAM: Comprehensive 2D, Doppler, and color-flow Echocardiogram Patient Location: Bedside Room #: 215 Status: routine BSA: 2.13 HR: 100 bpm BP: 149/95 mmHg Rhythm: Atrial Fibrillation Other Information Study Quality: Technically DifficultTechnically Limited Indications Atrial Fibrillation CAD Hypertension/HDD Tricuspid Valve TR Peak Derrick.: 2.50 m/s TR Peak Gr.: 25.10 mmHg PA Pressure: 30.00 mmHg Left Ventricle The left ventricle is normal size. There is hypokinesis in the inferior wall. There is normal left ventricular wall thickness. Left ventricular systolic function is mildly decreased. LVEF is 45%. This study is not technically sufficient to allow evaluation of the LV diastolic function due to atrial fibrillation. Right Ventricle The right ventricle is normal size. The right ventricular systolic function is normal. Atria Left atrium is dilated. Right atrium is dilated. Aortic Valve [facility] [address] [place] [address] 2 D/M-MODE ECHOCARDIOGRAM Name: JACK DOWNEY JR Room #: 215-P ADM IN M.R.#: [id number] Admission: 08/11/18 Attend Phys: Aron Ferreira MD Discharge: Date of : 45 Date of Service: 08/18/18 1347 Report #: [id number] The aortic valve is not well visualized. Aortic valve is calcified. Mitral Valve The mitral valve is normal in structure. Tricuspid Valve The tricuspid valve is normal in structure. There is mild to moderate tricuspid regurgitation. Estimated PAP 30 mmHg. There is mild pulmonary hypertension. Pulmonic Valve Pulmonic valve is not well visualized. Great Vessels Aortic root is not well visualized. Pericardium There is no pericardial effusion. <Conclusion> The left ventricle is normal size. There is normal left ventricular wall thickness. Left ventricular systolic function is mildly decreased. There is hypokinesis in the inferior wall. The right ventricle is normal size. Left atrium is dilated. Aortic valve is calcified. The mitral valve is normal in structure. There is mild to moderate tricuspid regurgitation. Estimated PAP 30 mmHg. There is mild pulmonary hypertension. There is no pericardial effusion. <ELECTRONICALLY SIGNED> By: Ramy Lacey MD 08/18/18 1347 1347 1347 Ramy Lacey MD /INF
[2018-08-18 15:47] VITALS: BP 98/60
--- NOTE | 2018-08-18 16:00 | NUR ---
Care team recommendations for a SNF stay at [place] discussed with the pt at bedside. [facility] listing reviewed as well and left with the pt. The pt is receptive to SNF if he is too weak to go home with HH. He will discuss with his as well as his sister who is staying with is . He does have a lift chair at home and is hoping he will feel well enough to return home with HH. SNF options would be [facility] or [facility] [place]. DC raw material planner to fax referrals and check on bed availability as he may be dc ready tomorrow. Will follow up with the pt in the am and see how he does with therapy in the morning to determine which plan will be most benefical. His is debilitated with Parkensons and is not able to assist him at home. His sister may be able to continue staying with them to help out. Support provided.
--- NOTE | 2018-08-18 16:06 | NUR ---
FAXED REFERRAL TO [facility] SPOKE WITH GERMÁN IN ADM. SHE WILL REVIEW ANTICIPATE DC TOMORROW 08/19. FAXED REFERRAL TO [facility] AT [place] LEFT MSG WITH NATALIE IN ADM. TO REVIEW. DCP TO FOLLOW.
--- NOTE | 2018-08-18 16:08 | NUR ---
ASSESSMENT CHARTED - MEDS PER MAR - NO CO'S OF PAIN OR NAUSEA. VIRAJ DIET AND FLIUDS. PT HAS BEEN AMBULATING IN THE HALLS WITH THE USE OF WALKER - HAS BEEN SITTING IN THE CHAIR FOR MOST OF THE DAY. ACCUCHECKS CHARTED - COVERED PER SLIDING SCALE. CHEST TUBE AND PACER WIRES REMOVED THIS AM. DAUGHTER IN TO VISIT TODAY - SEEN BY [facility]WS FOR D/C DISPOSITION. NO CO'S AT THE PRESENT TIME.
[2018-08-18 19:40] VITALS: BP 114/63
--- NOTE | 2018-08-19 03:55 | NUR ---
ASSESSMENT DOCUMENTED.PT RESTING IN NO ACUTE DISTRESS.VSS.A/OX4.CPAP ON THROUGH THE NOC.VOIDS ADEQUATELY.SR ON MONITOR.PT REPORTED PAIN OF 5/10 TO STERNUM INCISIONS,THAT WAS CONTROLLED WITH PAIN MEDS.STERNUM INCISIONS DRESSING CDI.LEFT HARVEST SITES COOKER HELPER.LOWER SITE OOZING,DRESSING CHANGED THIS SHIFT.PT LOOKING FORWARD TO GOING TO REHAB FOR STRENGETHENING.WILL CONT TO MONITOR PER POC.
[2018-08-19 05:00] VITALS: BP 111/65
[2018-08-19 06:06] LABS: HEMATOCRIT 23.8 % (42.0-52.0); MCH 29.5 pg (26.0-34.0); MCHC 33.8 g/dL (28.0-37.0); MCV 87.1 fL (80.0-100.0); PLATELET COUNT 337 thou/uL (150-400); RBC 2.73 mil/uL (4.50-6.00); RDW 14.6 % (10.5-14.5); WBC 9.5 thou/uL (4.0-11.0)
[2018-08-19 06:52] LABS: PLATELET ESTIMATE NORMAL; POLYCHROMASIA 2+
[2018-08-19 07:04] LABS: URINE BILIRUBIN NEGATIVE (Negative); URINE BLOOD NEGATIVE (Negative); URINE CLARITY CLEAR; URINE COLOR YELLOW; URINE GLUCOSE-RANDOM* 1+ (Negative); URINE KETONES NEGATIVE (Negative); URINE LEUKOCYTES-REFLEX NEGATIVE (Negative); URINE NITRITE-REFLEX NEGATIVE (Negative); URINE PROTEIN (DIPSTICK) NEGATIVE (Negative); URINE SPECIFIC GRAVITY <= 1.005 (1.005-1.035); URINE UROBILINOGEN 0.2 E.U./dl (0.2-1.0)
[2018-08-19 07:53] VITALS: BP 138/74
[2018-08-19 08:35] LABS: CALCIUM 8.4 mg/dL (8.5-10.1); CREATININE 0.8 mg/dL (0.7-1.3); POTASSIUM 4.7 mmol/L (3.5-5.1)
[2018-08-19 11:07] VITALS: BP 112/69
--- NOTE | 2018-08-19 11:36 | NUR ---
Industrial Economist visited with the pt at bedside this am after therapy. He is agreeable to SNF stay at dc and did discuss with his last night. [facility] first choice and [facility] accepted. They will have a bed for the pt this weekend if medically cleared and insurance auth in place. Pt getting lasix today. Continues on O2 and need to increase activity and therapy. Pt had a bm on 08/17 and is eating meals. Goal is to dc to snf soon but insurance is refusing to give weekend auth siting pt with a mild ilieus. Insurance issue deferred to cm director. Will follow.
--- NOTE | 2018-08-19 15:21 | NUR ---
ASSUMED PATIENT CARE THIS AM. PATIENT LYING IN BED, A&O. UP TO CHAIR THIS AM AND FOR MEALS. PATIENT ON 2L NC THIS AM, THIS RN ATTEMPTED TO WEAN PATIENT OFF OXYGEN. PATIENT DID NOT TOLERATE WELL, PER DR. DAI, RESUME 2L NC AND GAVE LASIX PER ORDER. PATIENT TOLERATING DIET. NO COMPLAINTS STATED AT THIS TIME. DRESSINGS C/D/I. NO N/V,N/T STATED. UP X1 ASSIT. PATIENT HAS WALKED MULTIPLE TIMES WITH PT/CARDIAC REHAB NURSE. WILL CONTINUE TO MONITOR. PATIENT USES CALL LIGHT APPROPRIATLY.
[2018-08-19 15:47] VITALS: BP 107/65
[2018-08-19 20:23] VITALS: BP 105/45
[2018-08-20 00:03] VITALS: BP 109/66
[2018-08-20 04:39] VITALS: BP 106/57
--- NOTE | 2018-08-20 05:28 | NUR ---
ASSUMED PT CARE AT 1900. VSS. PT A&0X4. ASSESSMENTS AND MEDS GIVEN ARE DOCUMENTED. PT ONLY COMPLAINED OF SOME MILD PAIN THAT TYLENOL SEEMED TO RESOLVED YESTERDAY. PT RESTED WELL ALL NIGHT, HE USED HIS CPAP TO SLEEP OVERNIGHT. PT ON 2L NC OTHERWISE. PT IS STABLE, STILL GETS BRADYCARDIC WITH SLEEP, LEFT LEG HAS 2+ EDEMA, WELL A WOUND SITE THAT LEAKES BROWNISH DRAINAGE. SALINE AND OPTIFORM/MEPILEX WAS USED TO DRESS THIS SITE ON HIS LEFT LEG. WILL CONTINUE TO MONITOR.
[2018-08-20 08:00] VITALS: BP 114/54
[2018-08-20 10:08] LABS: CREATININE 0.9 mg/dL (0.7-1.3); POTASSIUM 4.4 mmol/L (3.5-5.1)
[2018-08-20 16:00] VITALS: BP 122/63
--- NOTE | 2018-08-20 17:19 | NUR ---
ASSESSMENT DOCUMENTED. PT ALERT AND ORIENTED WITH FORGETFULNESS. DENIED HAVING PAIN OR DISCOMFORT. STERNUM DRESSING C/D/I. UP IN THE CHAIR THIS SHIFT. AMBULATED X2 THIS SHIFT. NO RESPITORY OR CARDIAC DISTRESS NOTED. WILL CONTINUE TO MONITOR.
[2018-08-20 19:15] VITALS: BP 115/58
--- NOTE | 2018-08-21 03:56 | NUR ---
PATIENT IS ALERT AND ORIENTED. PATIENT IS UP TIMES ONE ASSIST. PATIENT IS ON STERNUM PRECAUTIONS. ALL DRESSING ARE CLEAN DRY AND INTACT. PATIENT IS ON 1500 FLUID RESTICTION. PATIENT IS ON RICAROXABAN FOR BLOOD THINNER NO SCDS DUE TO LEG GRAFTS. PATIENT IS A FIB ON TELE PROVIDER AWARE PER DAY SHIFT. OBINNA TIS ACHS PATIENT LBM WAS THE 16TH. PATIENT USES URINAL. PATINET IS 2LNC AND CPAP HS. PATINET HAS CONTINOUS PULSE OX. PATIMARYN IS PEND SNIF REHAB ON WEDNESDAY. PATIENTS PAIN IS TREATED WITH PAIN MEDICATION. PATIENT IS RESTING COMFORTABLEY IN BED. WCM PATIENT IS PROGRESSING TO GOALS.
[2018-08-21 04:00] VITALS: BP 114/69
--- NOTE | 2018-08-21 04:16 | NUR ---
wt this am was a standing wt
[2018-08-21 08:00] VITALS: BP 116/67
[2018-08-21 08:45] LABS: CALCIUM 9.4 mg/dL (8.5-10.1); CREATININE 0.9 mg/dL (0.7-1.3); POTASSIUM 4.4 mmol/L (3.5-5.1)
[2018-08-21 12:37] VITALS: BP 110/73
[2018-08-21 16:00] VITALS: BP 112/56
--- NOTE | 2018-08-21 17:34 | NUR ---
PATIENT ALERT AND ORIENTED. PLEASANT AND COOPERATIVE WITH CARES. DENIED HAVING PAIN OR DISCOMFORT. AMBULATED X 2 THIS SHIFT. UP IN THE CHAIR. STERNUM DRESSING INTACT. WILL CONTINUE TO MONITOR.
[2018-08-21 19:18] VITALS: BP 133/67
--- NOTE | 2018-08-22 03:50 | NUR ---
ASSUME CARE 1900. PT/VITALSS STABLE. INTERMITTENT INCISIONAL PAIN NOTED. TOLERATES ACTIVITY WELL. ASSESSMENT CHARTED. PROGRESSING WELL WITH POC. ADEQUATE REST NOTED. CPAP AT NIGHT. COMPLIANT WITH CARE. SATS ADEQUATELY ON ROOM AIR. PLAN IS A POSSIBLE DISCHARGE TO SNF FOR REHAB TODAY. WILL CONTINUE TO FOLLOW WITH POC
[2018-08-22 04:05] LABS: CALCIUM 8.9 mg/dL (8.5-10.1); CREATININE 1.1 mg/dL (0.7-1.3); MAGNESIUM 2.3 mg/dL (1.8-2.4); POTASSIUM 4.7 mmol/L (3.5-5.1)
[2018-08-22 04:32] VITALS: BP 97/50
[2018-08-22 05:04] LABS: HEMATOCRIT 24.6 % (42.0-52.0); MCH 28.5 pg (26.0-34.0); MCHC 32.4 g/dL (28.0-37.0); RBC 2.79 mil/uL (4.50-6.00); RDW 15.1 % (10.5-14.5); WBC 8.5 thou/uL (4.0-11.0)
[2018-08-22 08:06] VITALS: BP 115/48
[2018-08-22] MEDS ORDERED: FERREX 150 PLU1 EAC1 PO (11:31)
[2018-08-22] MEDS ORDERED: MELATONIN1 MG PO (11:31)
[2018-08-22] MEDS ORDERED: NOVOLOG100 UNIT/1 SUBQ (11:31)
[2018-08-22] MEDS ORDERED: LANTUS100 UNIT/M SUBQ (11:31)
[2018-08-22] MEDS ORDERED: XARELTO20 MG PO (11:31)
[2018-08-22] MEDS ORDERED: ACETAMINOPHEN325 M1 PO (11:31)
[2018-08-22] MEDS ORDERED: PEPCID20 MG PO (11:31)
[2018-08-22] MEDS ORDERED: PACERONE 200 M200 M1 PO (11:31)
[2018-08-22] MEDS ORDERED: ADULT LOW DOSE81 MG PO (11:31)
--- NOTE | 2018-08-22 11:42 | NUR ---
DCP NOTIFIED [facility] REGARDING AUTH. SPOKE WITH GERMÁN IN ADM. AND SHE FAXED REFERRAL TO INSURANCE AND IS WTG. ON AUTH. DCP TO FOLLOW.
[2018-08-22 12:36] VITALS: BP 113/57
--- NOTE | 2018-08-22 12:49 | NUR ---
[facility] CALLED AND REC AUTH FOR SKILLED CARE. CHART COPY IN PROCESS. [facility] TO PICKUP AT 1430. NOTIFIED PATIENT, AND RN OF DC AND TIMEFRAME. ALL IN AGREEMENT
--- NOTE | 2018-08-22 12:50 | NUR ---
PT. DISCHARGING TODAY TO [facility]. FAXED DC ORDERS/SUMMARY TO FACILITY AND SPOKE WITH GERMÁN IN ADM. AND SHE ARRANGED TRANSPORT VIA [facility] FOR 1430 TODAY. SW NOTIFIED AND UNIT NOTIFIED AND CHART COPY PER US. RN TO CALL REPORT TO [phone].
--- NOTE | 2018-08-22 13:20 | NUR ---
CALLED REPORT TO LALONURSE AT [facility].
--- NOTE | 2018-08-22 15:08 | NUR ---
Pt remains in stable conditions. He left CCU via wheelchair,accompanied with transportation service. He will be admitted to [facility]. All belonging are sent with him.
--- NOTE | 2018-08-22 15:08 | NUR ---
PT LEFT CCU WITH STABLE CONDITIONS. HE IS ACCOMPANIED WITH TRANSPROTATION. HE WILL BE ADMIT TO [facility]. ALL BELONGIONG ARE SENT WITH HIM.
== END 2018-08-22 15:08 | DRG 235 ==
LOC: PRE 05:23 → ICU 05:44 → TBA 05:44 → 2N 05:44 → PRE 07:26 → ICU 15:30 → 2N 08-17 12:03
PROVIDERS: Internal Medicine; Internal Medicine Cardiovascular Disease; Nurse Practitioner Acute Care; ADMIT Surgery Vascular Surgery
DX: I25.10 Atherosclerotic heart disease of native coronary artery without angina pectoris (principal); E43 Unspecified severe protein-calorie malnutrition; J96.01 Acute respiratory failure with hypoxia; E87.1 Hypo-osmolality and hyponatremia; E11.9 Type 2 diabetes mellitus without complications; G47.33 Obstructive sleep apnea (adult) (pediatric); F41.9 Anxiety disorder, unspecified; K21.9 Gastro-esophageal reflux disease without esophagitis; E66.9 Obesity, unspecified; M19.90 Unspecified osteoarthritis, unspecified site; E78.5 Hyperlipidemia, unspecified; K59.00 Constipation, unspecified; I48.0 Paroxysmal atrial fibrillation; G47.00 Insomnia, unspecified; I10 Essential (primary) hypertension; D64.9 Anemia, unspecified; I95.9 Hypotension, unspecified; D72.829 Elevated white blood cell count, unspecified; Z88.6 Allergy status to analgesic agent; Z79.82 Long term (current) use of aspirin; Z79.899 Other long term (current) drug therapy; Z82.49 Family history of ischemic heart disease and other diseases of the circulatory system; Z68.32 Body mass index [BMI] 32.0-32.9, adult
CPT/HCPCS: 10078; 10081; 10204; 47000; 47001; 47002; 47297; 48888; 50010; 50249; 50409; 50456; 50498; 50668; 51301; 52131; 52259; 52314; 53358; 54118; 56524; 56525; 56526; 56527; 56528; 56531; 56668; 56760; 56898; 57093; 62110; 62950; 65003; 65020; 65047; 65120; 65135

== ENCOUNTER → 2018-10-05 | Outpatient (CLI) | payer OTHER ==
[~2018-10-05] MED LIST changes: +ACETAMINOPHEN325 M1 PO; +ADULT LOW DOSE81 MG PO; +FERREX 150 PLU1 EAC1 PO; +MELATONIN1 MG PO; +PACERONE 200 M200 M1 PO; +PEPCID20 MG PO; +XARELTO20 MG PO
== END ==
LOC: HYPER 09-26 14:34
DX: T81.31XA Disruption of external operation (surgical) wound, not elsewhere classified, initial encounter (principal); E11.622 Type 2 diabetes mellitus with other skin ulcer; L97.822 Non-pressure chronic ulcer of other part of left lower leg with fat layer exposed; E03.9 Hypothyroidism, unspecified; G47.30 Sleep apnea, unspecified; I25.10 Atherosclerotic heart disease of native coronary artery without angina pectoris; I48.91 Unspecified atrial fibrillation; I10 Essential (primary) hypertension; K21.9 Gastro-esophageal reflux disease without esophagitis; M19.90 Unspecified osteoarthritis, unspecified site; F41.9 Anxiety disorder, unspecified; F32.9 Major depressive disorder, single episode, unspecified; Z96.651 Presence of right artificial knee joint; Z79.01 Long term (current) use of anticoagulants; Z79.84 Long term (current) use of oral hypoglycemic drugs; Z79.4 Long term (current) use of insulin; Z79.82 Long term (current) use of aspirin; Z95.1 Presence of aortocoronary bypass graft; Z85.820 Personal history of malignant melanoma of skin; Y92.89 Other specified places as the place of occurrence of the external cause; Y83.8 Other surgical procedures as the cause of abnormal reaction of the patient, or of later complication, without mention of misadventure at the time of the procedure

== ENCOUNTER → 2018-10-12 | Outpatient (CLI) | payer OTHER | LOC: HYPER 06:48 | DX: T81.31XD Disruption of external operation (surgical) wound, not elsewhere classified, subsequent encounter (principal); L97.822 Non-pressure chronic ulcer of other part of left lower leg with fat layer exposed; E11.622 Type 2 diabetes mellitus with other skin ulcer; I25.10 Atherosclerotic heart disease of native coronary artery without angina pectoris; I10 Essential (primary) hypertension; L84 Corns and callosities; I48.91 Unspecified atrial fibrillation; E03.9 Hypothyroidism, unspecified; K21.9 Gastro-esophageal reflux disease without esophagitis; M19.90 Unspecified osteoarthritis, unspecified site; G47.30 Sleep apnea, unspecified; F41.9 Anxiety disorder, unspecified; F32.9 Major depressive disorder, single episode, unspecified; Z79.01 Long term (current) use of anticoagulants; Z79.84 Long term (current) use of oral hypoglycemic drugs; Z79.4 Long term (current) use of insulin; Z96.651 Presence of right artificial knee joint; Y83.8 Other surgical procedures as the cause of abnormal reaction of the patient, or of later complication, without mention of misadventure at the time of the procedure ==

== ENCOUNTER → 2018-10-26 | Outpatient (CLI) | payer OTHER | LOC: HYPER 06:37 | DX: T81.31XD Disruption of external operation (surgical) wound, not elsewhere classified, subsequent encounter (principal); E11.622 Type 2 diabetes mellitus with other skin ulcer; L97.822 Non-pressure chronic ulcer of other part of left lower leg with fat layer exposed; E03.9 Hypothyroidism, unspecified; R60.0 Localized edema; I25.10 Atherosclerotic heart disease of native coronary artery without angina pectoris; I48.91 Unspecified atrial fibrillation; I10 Essential (primary) hypertension; G47.30 Sleep apnea, unspecified; K21.9 Gastro-esophageal reflux disease without esophagitis; M19.90 Unspecified osteoarthritis, unspecified site; F41.9 Anxiety disorder, unspecified; F32.9 Major depressive disorder, single episode, unspecified; Z96.651 Presence of right artificial knee joint; Z95.1 Presence of aortocoronary bypass graft; Z85.820 Personal history of malignant melanoma of skin; Z79.01 Long term (current) use of anticoagulants; Z79.84 Long term (current) use of oral hypoglycemic drugs; Z79.4 Long term (current) use of insulin ==

== ENCOUNTER → 2018-11-16 | Outpatient (CLI) | payer OTHER | LOC: RAD 11:49 | DX: I11.9 Hypertensive heart disease without heart failure (principal); J96.11 Chronic respiratory failure with hypoxia; J45.20 Mild intermittent asthma, uncomplicated; Z88.8 Allergy status to other drugs, medicaments and biological substances; Z88.5 Allergy status to narcotic agent ==

== ENCOUNTER → 2019-01-21 | Outpatient (CLI) | payer OTHER ==
--- NOTE | 2019-01-24 21:40 | SLE ---
[facility] [place] [address] POLYSOMNOGRAPHY STUDY Name: JACK DOWNEY JR Room #: [facility]#: [id number] Admission: 01/21/19 ������������������ Attend Phys: Christopher Dunn MD Discharge: ������������������ Date of : 45 Report #: [id number] THIS REPORT FOR: //name// CC: Christopher Frost MD DATE OF SERVICE: 01/21/2019 SLEEP STUDY ATTENDING PHYSICIAN: Dr. Jl Frost. The patient is a 73-year-old who weighs 216 pounds with a BMI of 29.6. The patient's [place] score was 18 suggesting severe subjective hypersomnia. The patient is also on gabapentin. The patient is currently on CPAP. A nocturnal oximetry study performed recently showed desaturations while using home CPAP. The patient uses oxygen 2 liters on a 24-hour basis. There was also a download done between July and October, which revealed an AHI of less than 2 per hour and the patient's average pressure was 12. Another titration study was requested by the patient's cutter in to assess the efficacy of the current CPAP. During the night study, the patient spent 466 minutes in bed and slept for 391 minutes with a sleep efficiency of 84%. Sleep latency was 7 minutes with an absent REM sleep. Overall, sleep architecture showed increased stage 1 and stage 2 sleep, absent slow wave and absent REM sleep. EKG monitoring revealed an average heart rate of 84 beats per minute. The patient had no sustained arrhythmias observed. Severe PLMS were seen at an index of 175 per hour and 22 per hour caused EEG arousals. This study was performed on room air. The patient was started on CPAP at a pressure of 7 cm water and titrated up to 17 cm of water. There was limited sleep time between CPAP pressures of 14-16. At a pressure of 17 cm of water, the patient slept for 26.9 minutes. The patient had supine sleep throughout, but no REM sleep was observed. The patient's AHI was reduced to 6.7 per hour and oxygen saturations remained above 92%. I would recommend that the patient should be placed on 18 cm water. The patient did not require supplemental oxygen with CPAP. IMPRESSION: 1. Sleep apnea diagnosed previously. [facility] [address] [place] [address] POLYSOMNOGRAPHY STUDY Name: JACK DOWNEY Room #: [facility]#: [id number] Admission: 01/21/19 ������������������ Attend Phys: Christopher Dunn MD Discharge: ������������������ Date of : 45 Report #: [id number] 2. Severe periodic limb movements. RECOMMENDATIONS: 1. CPAP at 18 cm water should be used on a nightly basis. The patient did not require supplemental oxygen with the CPAP. 2. Follow up in 4-6 weeks to assess compliance with CPAP and to document clinical improvement. 3. If the patient continues to have subjective hypersomnia then effect of medications should be considered. The patient is currently on gabapentin. 4. PLMS can be treated with dopaminergic agonist agents. The patient should also be further evaluated for symptoms of restless legs during the day. 5. Cautioned regarding driving or operating heavy machinery until symptoms of sleep apnea resolve with the use of CPAP. ��������������������������������������������� <ELECTRONICALLY SIGNED> ���������������������������������������� By: Christopher Dunn MD ��������������������������������������������� 01/24/19 2140 1247 1304 Christopher Dunn MD /nt
== END ==
LOC: SLEEPLAB 12-16 10:36
DX: G47.33 Obstructive sleep apnea (adult) (pediatric) (principal); Z99.89 Dependence on other enabling machines and devices

== ENCOUNTER → 2019-04-18 | Outpatient (CLI) | payer OTHER | LOC: CAT 11:50 | DX: R91.1 Solitary pulmonary nodule (principal); I25.10 Atherosclerotic heart disease of native coronary artery without angina pectoris; M47.814 Spondylosis without myelopathy or radiculopathy, thoracic region; I77.810 Thoracic aortic ectasia; Z88.8 Allergy status to other drugs, medicaments and biological substances ==